=== PATIENT | female | born 1985 | race Caucasian/White ===

== ENCOUNTER 2017-03-19 06:09 | Day surgery (SDC) | payer MEDICAID ==
[2017-03-16 11:58] LABS: HEMATOCRIT 32.5 % (36.0-47.0); HEMOGLOBIN 11.1 g/dL (12.0-15.5); HGB HCT DIFFERENCE 0.8; MEAN CORPUSCULAR HEMOGLOBIN 26.3 pg (27.0-33.4); MEAN CORPUSCULAR HGB CONC 34.1 g/dL (32.0-36.0); MEAN CORPUSCULAR VOLUME 77 fl (80-97); RED BLOOD COUNT 4.21 10^6/uL (3.72-5.28); RED CELL DISTRIBUTION WIDTH 13.2 % (11.5-14.0); WHITE BLOOD COUNT 6.8 10^3/uL (4.0-10.5)
[2017-03-16 11:59] LABS: APPEARANCE,URINE CLEAR; BILIRUBIN,URINE NEGATIVE (NEGATIVE); GLUCOSE, URINE NEGATIVE (NEGATIVE); KETONES,URINE NEGATIVE (NEGATIVE); LEUKOCYTE ESTERASE,URINE NEGATIVE (NEGATIVE); NITRITE,URINE NEGATIVE (NEGATIVE); PROTEIN,URINE NEGATIVE (NEGATIVE); UROBILINOGEN,URINE NEGATIVE mg/dL (<2.0)
[~2017-03-19 06:09] MED LIST: LACTATED RINGERS 1000 ML IV PRN; LIDOCAINE 0.5% INJ-PF (5 MG/ML) 50 ML SDV SUBCUT PRN; SCOPOLAMINE HYDROBROMIDE 1.5 MG PATCH.TD72 ONE
[2017-03-19] MEDS ORDERED: BUPIVACAINE HCL 0.25 % INJ/PF (2.5 MG/1 ML) 30 ML VIAL ONE (07:08)
[2017-03-19] MEDS ORDERED: LIDOCAINE 2% INJ-PF (20 MG/ML) 10 ML AMPUL ONE (07:08)
[2017-03-19] MEDS ORDERED: LIDOCAINE 1% INJ-PF (10 MG/ML) 30 ML SDV ONE (07:08)
[2017-03-19] MEDS ORDERED: FENTANYL CITRATE INJ/PF 100 MCG/2 ML AMPUL ONE ×2 (07:09→07:17)
[2017-03-19] MEDS ORDERED: PROPOFOL INJ 200 MG/20 ML VIAL IV ONE ×2 (07:09→07:18)
[2017-03-19] MEDS ORDERED: MIDAZOLAM 2 MG/2 ML INJ ONE ×2 (07:09→07:17)
[2017-03-19] MEDS ORDERED: ONDANSETRON HCL INJ/PF 4 MG/2 ML SDV ONE ×2 (07:09→14:24)
[2017-03-19] MEDS ORDERED: ACETAMINOPHEN 0 ML IV ONE (07:09)
[2017-03-19] MEDS ORDERED: PROMETHAZINE HCL INJ 25 MG/1 ML VIAL IV PRN (08:53)
[2017-03-19] MEDS ORDERED: DIPHENHYDRAMINE HCL 50 MG/ML VIAL IV PRN (08:53)
[2017-03-19] MEDS ORDERED: FENTANYL CITRATE INJ/PF 100 MCG/2 ML AMPUL IV PRN ×3 (08:53)
[2017-03-19] MEDS ORDERED: KETOROLAC TROMETHAMINE INJ/PF 30 MG/1 ML SDV ONE (09:16)
--- NOTE | 2017-03-19 13:23 | OPERATIVE REPORT E ---
Operative Report NAME: LEXII CANDELARIA : 1985 AGE: 31Y DATE OF SURGERY: 03/19/2017 ROOM: PREOPERATIVE DIAGNOSIS: Hypermenorrhea. POSTOPERATIVE DIAGNOSIS: Hypermenorrhea. PROCEDURE: NovaSure. SURGEON: Morena GONZALEZ M.D. ANESTHESIA: General. ESTIMATED BLOOD LOSS: Negligible. TISSUE REMOVED: Endometrium. PROCEDURE: Patient was placed in a dorsal lithotomy position, prepped and draped in the usual sterile fashion. The cervix was dilated to a #8 and the hysteroscope was placed. There was a moderate amount of tissue being noted and a sharp curettage was performed with a moderate amount of tissue being recovered. NovaSure device was then placed and the ablation was then done. The uterus was a depth of 6.7 with a width of 4.0 and it took approximately 1 minute and 37 seconds for the ablation. The device was removed and a single-tooth tenaculum was removed. Hemostasis was noted and she was taken to the recovery room in good condition. DICTATING PHYSICIAN: Morena GONZALEZ M.D. [id number] PHY#: [id number] ID: [id number] JOB#: [id number] ACCT: [id number] cc:Morena GONZALEZ M.D. >
[2017-03-19 13:24] VITALS: BP 104/74
[2017-03-19] MEDS ORDERED: DEXAMETHASONE SOD PHOSPHATE INJ 4 MG/1 ML VIAL ONE (14:24)
[2017-03-19] MEDS ORDERED: LIDOCAINE 2% INJ-PF (20 MG/ML) 2 ML AMPUL ONE (14:24)
[2017-03-20] MEDS ORDERED: LIDOCAINE 0.5% INJ-PF (5 MG/ML) 50 ML SDV SUBCUT PRN (05:00)
[2017-03-20] MEDS ORDERED: LACTATED RINGERS 1000 ML IV PRN (05:00)
== END 2017-03-19 10:40 | disposition home or self-care (01) ==
LOC: OROUT 06:09
PROVIDERS: ATTEND Obstetrics & Gynecology Gynecology
PROC: 0U5B8ZZ Destruction of Endometrium, Via Natural or Artificial Opening Endoscopic (ICD-10-PCS; principal; 2017-03-19 08:15)
DX: Z30.2 Encounter for sterilization (principal); N92.0 Excessive and frequent menstruation with regular cycle; G43.909 Migraine, unspecified, not intractable, without status migrainosus; Z79.899 Other long term (current) drug therapy; Z88.0 Allergy status to penicillin; Z88.8 Allergy status to other drugs, medicaments and biological substances
CPT/HCPCS: 36415; 85027; 81005; 81025; 88305 ×2; 58563; J2250; J1100; J3010; J3490 ×2; J1885; J2405; J2704; 952; J0131